=== PATIENT | male | born 1985 | race Caucasian/White ===

== ENCOUNTER → 2021-08-04 | Day surgery (SDC) | payer OTHER ==
[~2021-08-04] VITALS: Ht 185.4 cm; Wt 176.9 kg
[~2021-08-04] MED LIST: CETIRIZINE HCL10 MG PO; LOPRESSOR50 MG PO
[2021-08-04 12:50] LABS: BASOPHIL 0.4 % (0-2); EOSINOPHIL 2.2 % (0-5); HGB 15.8 g/dl (13.2-18.0); LYMPHOCYTE 31.9 % (15-48); MCH 31.2 pg (25.0-31.0); MCHC 33.6 g/dL (32.0-36.0); MCV 92.9 fL (78.0-100.0); MONOCYTE 6.9 % (0-12); NEUTROPHIL 58.2 % (41-80); NRBC 0; PLT 188 K/uL (150-400); RBC 5.06 M/uL (4.70-6.00); RDW 12.9 % (11.5-14.0); WBC 15.8 K/uL (4.0-10.5)
== END | disposition home or self-care (01) ==
LOC: FAS 11:21
PROVIDERS: Oral & Maxillofacial Surgery
DX: K02.9 Dental caries, unspecified (principal); K04.7 Periapical abscess without sinus; E66.01 Morbid (severe) obesity due to excess calories; I10 Essential (primary) hypertension; K21.9 Gastro-esophageal reflux disease without esophagitis; F17.210 Nicotine dependence, cigarettes, uncomplicated
CPT/HCPCS: D7210 ×5; 36415; 71045; 85025; 93005; J1100; J1885; J2001; J2250; J2405; J2704; J2710; J7120